=== PATIENT | male | born 1965 | race Caucasian/White ===

== ENCOUNTER 2016-12-06 17:00 | Emergency (ER) | payer MEDICAID ==
[~2016-12-06] VITALS: Ht 177.8 cm; Wt 95.3 kg
[~2016-12-06 17:00] MED LIST: HYDR-4446 PO; SYN.025 PO
[2016-12-06 17:09] VITALS: BP 148/91
--- NOTE | 2016-12-06 17:18 | NUR ---
PATIENT PRESENTS TO ED WITH LOWER BACK PAIN SHOULDER PAIN LT LEG PAIN . PT STATES . DENIES N/V/D; SKIN IS PINK/WARM/DRY; AAOX4 WITH EVEN AND STEADY GAIT; LUNGS CLEAR BL; HR EVEN AND REGULAR; PT DENIES ANY FEVER, CP, SOB, OR COUGH AT THIS TIME; PATIENT STATES PAIN OF 8/10 AT THIS TIME; VSS; PATIENT POSITIONED FOR COMFORT; HOB ELEVATED; BEDRAILS UP X2; BED DOWN. ER MD MADE AWARE OF PT STATUS.
[2016-12-06] MEDS ORDERED: IBUPROFEN 400 MG TAB PO ONE (17:25)
--- NOTE | 2016-12-06 17:28 | NUR ---
NOTIFIED PT REFUSED ANALGESIC---PT CONTINUES TO WAIT FOR X-RAY
--- NOTE | 2016-12-06 17:29 | NUR ---
X-Ray at bedside.
--- NOTE | 2016-12-06 17:55 | NUR ---
SPOKE WITH PT---PLAN IS TO DC HOME AND HAVE PT F/U WITH PMD
[2016-12-06 18:00] VITALS: BP 132/72
--- NOTE | 2016-12-06 18:01 | NUR ---
PT'S X-RAYS HANDED TO PT IN A DISC TO TAKE TO HIS PMD Patient discharged with v/s stable. Written and verbal after care instructions given and explained. Patient alert, oriented and verbalized understanding of instructions. Ambulatory with steady gait. All questions addressed prior to discharge. ID band removed. Patient advised to follow up with PMD. Rx of NORCO/KEFLEX given. Patient educated on indication of medication including possible reaction and side effects. Opportunity to ask questions provided and answered.
== END 2016-12-06 18:01 | disposition home or self-care (01) ==
LOC: MED 17:00
DX: L03.115 Cellulitis of right lower limb (principal); G89.29 Other chronic pain; M54.2 Cervicalgia; M54.5 Low back pain
CPT/HCPCS: 73660; 99284; Q0092

== ENCOUNTER 2017-02-23 15:45 | Emergency (ER) | payer MEDICAID, OTHER ==
[~2017-02-23] VITALS: Ht 180.3 cm; Wt 90.7 kg
[~2017-02-23 15:45] MED LIST changes: +ACET-8386 PO; -HYDR-4446 PO
[2017-02-23 15:57] VITALS: BP 149/95
--- NOTE | 2017-02-23 16:07 | NUR ---
Patient taken to XRAY via wheelchair per tech from lobby.
--- NOTE | 2017-02-23 16:08 | NUR ---
PT PRESENTS TO ER W/C/O RIGHT SHOULDER PAIN X1 WEEK. PT STATES HE WAS LIFTING A BOX AT WORK 1 WEEK AGO AND HAS FELT PAIN SINCE THAT TIME. HX HYPERTHYROIDISM. AAOX4 WITH EVEN AND STEADY GAIT; LUNGS CLEAR BL; PATIENT STATES PAIN OF 9/10 AT THIS TIME;PATIENT POSITIONED FOR COMFORT; HOB ELEVATED; BEDRAILS UP X2; BED DOWN. ER MD MADE AWARE OF PT STATUS.
--- NOTE | 2017-02-23 16:14 | NUR ---
Patient back from XRAY taken to bed 06 via wheelchair per tech.
--- NOTE | 2017-02-23 16:30 | NUR ---
Patient being evaluated by dr metcalf at bedside.
[2017-02-23] MEDS ORDERED: IBUPROFEN 800 MG TAB PO ONE (16:40)
[2017-02-23 16:52] VITALS: BP 118/100
--- NOTE | 2017-02-23 16:52 | NUR ---
Patient discharged with v/s stable. Written and verbal after care instructions given and explained. Patient alert, oriented and verbalized understanding of instructions. Ambulatory with steady gait. All questions addressed prior to discharge. ID band removed. Patient advised to follow up with PMD. Rx of MOTRIN 800MG ONE TAB PO 3 TIMES A DAY given. Patient educated on indication of medication including possible reaction and side effects. Opportunity to ask questions provided and answered.
== END 2017-02-23 16:52 | disposition home or self-care (01) ==
LOC: MED 15:45
DX: S43.401A Unspecified sprain of right shoulder joint, initial encounter (principal); R03.0 Elevated blood-pressure reading, without diagnosis of hypertension; E05.90 Thyrotoxicosis, unspecified without thyrotoxic crisis or storm; X58.XXXA Exposure to other specified factors, initial encounter; Y93.89 Activity, other specified; Y92.89 Other specified places as the place of occurrence of the external cause; Y99.8 Other external cause status
CPT/HCPCS: 73030; 99284

== ENCOUNTER 2017-02-25 05:55 | Emergency (ER) | payer MEDICAID, OTHER ==
[~2017-02-25] VITALS: Ht 180.3 cm; Wt 93.4 kg
[2017-02-25 06:03] VITALS: BP 155/102
--- NOTE | 2017-02-25 06:07 | NUR ---
PT TAKEN TO BED 4
--- NOTE | 2017-02-25 06:13 | NUR ---
Dr. Ogden evaluating patient at bedside.
--- NOTE | 2017-02-25 06:13 | NUR ---
51 Y/M PRESENTS TO ED W/C/O SPIDER BITE X 30 MINUTES AGO. MED HX HYPERTHYROIDISM. AAO X4, AMBULATORY WITH STEDAY GAIT. RESPIRATIONS ROOM AIR, EVEN AND UNLABORED. SKIN WARM AND DRY. RT. BACK SMALL BUMP NOTED. C/O PAIN 08/24. VSS, ER MD MADE AWARE OF PT. STATUS.
[2017-02-25 06:19] VITALS: BP 150/90
--- NOTE | 2017-02-25 06:19 | NUR ---
Patient discharged with v/s stable. Written and verbal after care instructions given and explained. Patient verbalized understanding. Ambulatory with steady gait. All questions addressed prior to discharge. Advised to follow up with PMD.
== END 2017-02-25 06:19 | disposition home or self-care (01) ==
LOC: MED 05:55
DX: S20.469A Insect bite (nonvenomous) of unspecified back wall of thorax, initial encounter (principal); R03.0 Elevated blood-pressure reading, without diagnosis of hypertension; Z79.899 Other long term (current) drug therapy; W57.XXXA Bitten or stung by nonvenomous insect and other nonvenomous arthropods, initial encounter; Y93.89 Activity, other specified; Y92.89 Other specified places as the place of occurrence of the external cause; Y99.8 Other external cause status
CPT/HCPCS: 99281

== ENCOUNTER 2018-01-22 11:14 | Emergency (ER) | payer SELFPAY ==
--- NOTE | 2018-01-22 11:45 | NUR ---
called from lobby no answer.
--- NOTE | 2018-01-22 12:06 | NUR ---
SECOND CALL FROM LOBBY NO ANSWER PATIENT IS LWBS
== END 2018-01-22 11:50 | disposition left against medical advice (07) ==
LOC: MED 11:14
DX: Z53.21 Procedure and treatment not carried out due to patient leaving prior to being seen by health care provider (principal)

== ENCOUNTER 2020-09-02 10:15 | Emergency (ER) | payer OTHER ==
[~2020-09-02] VITALS: Ht 180.3 cm; Wt 90.7 kg
[2020-09-02 10:21] VITALS: BP 188/105
[2020-09-02] MEDS ORDERED: KETOROLAC 30 MG/ML VIAL IVP ONE (10:40)
[2020-09-02] MEDS ORDERED: FAMOTIDINE 20 MG/2 ML VIAL IVP ONE (10:40)
[2020-09-02] MEDS ORDERED: ONDANSETRON 4 MG/2 ML VIAL IVP ONE (10:40)
[2020-09-02 10:55] LABS: BASOPHILS % (AUTO) 0.4 % (0.0-2.0); EOSINOPHILS # (AUTO) 0.1 K/uL (0-0.4); EOSINOPHILS % (AUTO) 0.8 % (0.0-4.0); HEMATOCRIT 45.2 % (36-52); HEMOGLOBIN 15.1 g/dL (12.0-18.0); LYMPHOCYTES % (AUTO) 10.6 % (20.5-51.1); MEAN CORPUSCULAR HEMOGLOBIN 32 pg (27-31); MEAN CORPUSCULAR HGB CONC 34 g/dL (33-37); MEAN CORPUSCULAR VOLUME 94.6 fL (80-94); MONOCYTES # (AUTO) 0.5 K/uL (0.8-1.0); NEUTROPHILS # (AUTO) 8.1 K/uL (1.8-7.7); NEUTROPHILS % (AUTO) 83.2 % (42.2-75.2); PLATELET COUNT (AUTO) 241 K/uL (140-450); RED BLOOD CELL COUNT(AUTO) 4.78 MIL/uL (4.20-6.10); RED CELL DISTRIBUTION WIDTH 13.4 % (11.6-13.7); WHITE BLOOD COUNT (AUTO) 9.7 K/uL (4.8-10.8)
[2020-09-02 11:36] LABS: ALBUMIN 3.6 g/dL (3.4-5.0); ANION GAP 14.3 (8-16); CARBON DIOXIDE 23.1 mmol/L (21-32); CREATININE 0.9 mg/dL (0.6-1.3); POTASSIUM 3.4 mmol/L (3.5-5.1); TOTAL BILIRUBIN 0.3 mg/dL (0.0-1.0)
[2020-09-02 12:07] LABS: APPEARANCE,URINE CLEAR (CLEAR); BILIRUBIN,URINE NEGATIVE (NEGATIVE); BLOOD, URINE NEGATIVE (NEGATIVE); COLOR,URINE YELLOW (YELLOW); LEUKOCYTE ESTERASE ,URINE NEGATIVE (NEGATIVE); NITRITE, URINE NEGATIVE (NEGATIVE); UGLUCOSE NEGATIVE (NEGATIVE)
[2020-09-02] MEDS ORDERED: ONDA4TAB PO (12:41)
[2020-09-02] MEDS ORDERED: ACET-8386 PO (12:41)
[2020-09-02] MEDS ORDERED: MORPHINE SULFATE 2 MG/ML SYR IVP ONE (13:15)
[2020-09-02 13:53] VITALS: BP 155/94
== END 2020-09-02 13:50 | disposition home or self-care (01) ==
LOC: MED 10:15
DX: K80.20 Calculus of gallbladder without cholecystitis without obstruction (principal); R03.0 Elevated blood-pressure reading, without diagnosis of hypertension; K75.9 Inflammatory liver disease, unspecified; K21.9 Gastro-esophageal reflux disease without esophagitis; E03.9 Hypothyroidism, unspecified; F17.200 Nicotine dependence, unspecified, uncomplicated; Z86.19 Personal history of other infectious and parasitic diseases; Z79.899 Other long term (current) drug therapy
CPT/HCPCS: 36415; 76705; 80053; 81003; 83690; 85025; 96374; 96375; 99284; J1885; J2270; J2405; J3490

== ENCOUNTER 2023-11-20 00:44 | Emergency (ER) | payer OTHER ==
[~2023-11-20] VITALS: Ht 180.3 cm; Wt 102.1 kg
[~2023-11-20 00:44] MED LIST changes: -ACET-8386 PO; +ACET-8905 PO; +ONDA4TAB PO
[2023-11-20 00:57] VITALS: BP 129/80; PULSE 88; RESP 16; TEMP 98.3; O2SAT 99
[2023-11-20 01:21] VITALS: BP 129/80; PULSE 88; RESP 16; TEMP 98.3; O2SAT 99
== END 2023-11-20 02:11 | disposition left against medical advice (07) ==
LOC: MED 00:44
DX: M25.562 Pain in left knee (principal); E11.9 Type 2 diabetes mellitus without complications; Z53.21 Procedure and treatment not carried out due to patient leaving prior to being seen by health care provider
CPT/HCPCS: 73562